=== PATIENT | male | born 1995 | race Caucasian/White ===

== ENCOUNTER 2017-08-26 11:42 | Emergency (ER) | payer BC ==
--- NOTE | 2017-08-26 12:33 | EDM.PDOC ---
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 The part was only partially supported, producing pain in the R shoulder girdle area. The R forearm feels fine. Since the incident, he is experiencing increasing muscular spasms of the upper back, migrating accross the back and chest. Breathing feels tight at times, and his MDI seems ineffective. He has taken no analgesics. - Related Data Home Meds: Home Meds Cyclobenzaprine [Flexeril] 10 mg PO TID #30 tab 08/26/17 [Rx] Past Medical History Respiratory History: Reports: Asthma ED ROS GENERAL - Review of Systems Review Of Systems: ROS reveals no pertinent complaints other than HPI. ED EXAM, UPPER BACK/NECK PAIN - Physical Exam Exam: See Below Exam Limited By: No Limitations General Appearance: Alert, WD/WN, Mild Distress Head Exam: Normocephalic Neck Exam: Non-Tender, Full Range of Motion, Normal Alignment, Normal Inspection Cardiovascular/Respiratory: Regular Rate, Rhythm, No M/R/G, Normal Peripheral Pulses, Normal Breath Sounds, No Respiratory Distress, Other (tenderness of anterior and posterior muscles R>L, aggravated with deep breathing and movement of UEs) Back Exam: Normal Inspection, Full Range of Motion, Muscle Spasm, Paraspinal Tenderness Extremities: Normal Inspection, Normal Range of Motion, Other (pain and stiffness with movement of shoulders R>L) Neurologic: fire alarm technician II-XII nml As Tested, No Motor/Sensory Deficits, Normal Mood/ Affect, Oriented x 3 Psychiatric: Normal Affect, Normal Mood Skin Exam: Normal Color, Warm/Dry Lymphatic: No Adenopathy Course - Vital Signs Text/Narrative:: Wiliam remained stable at [facility] ED. There is obvious muscle spasms with movements and deep breathing. Departure - Departure Time of Disposition: 12:25 Disposition: Home, Self-Care 01 Condition: Fair Clinical Impression: Muscle strain, multiple sites - Discharge Information Prescriptions: Cyclobenzaprine [Flexeril] 10 mg PO TID #30 tab Referrals: Chandni Billy PA-C [Primary Care Provider] - Forms: ED Department Discharge - Problem List & Annotations (1) Muscle strain, multiple sites SNOMED Code(s): 81868534 Code(s): T07.XXXA - UNSPECIFIED MULTIPLE INJURIES, INITIAL ENCOUNTER Status : Acute Current Visit: Yes Annotation/Comment:: I dispensed Flexeril 10 mg tabs taken 1/2 to 1 tab tid for muscle spasms, suggested NSAIDs for pain, gentle ROM and stretches. - Problem List Review Problem List Initiated/Reviewed/Updated: Yes - Assessment/Plan Plan: Follow up with PCP if needed.
== END 2017-08-26 12:32 | disposition home or self-care (01) ==
LOC: FB.ED 11:42
DX: S46.912A Strain of unspecified muscle, fascia and tendon at shoulder and upper arm level, left arm, initial encounter (principal); S46.911A Strain of unspecified muscle, fascia and tendon at shoulder and upper arm level, right arm, initial encounter; J45.909 Unspecified asthma, uncomplicated; X50.9XXA Other and unspecified overexertion or strenuous movements or postures, initial encounter
CPT/HCPCS: 99284

== ENCOUNTER 2017-09-27 02:15 | Emergency (ER) | payer BC ==
[2017-09-27] MEDS ORDERED: Ketorolac 60 MG/2 ML SDV IM ONE (02:54)
[2017-09-27] MEDS ORDERED: hydrOXYzine HCl 50 MG/ML SDV IM ONE (02:54)
[2017-09-27] MEDS ORDERED: Ondansetron 4 MG Tab.DIS PO ONE (03:01)
--- NOTE | 2017-09-27 03:59 | ER ---
DATE SEEN: 09/27/2017 CHIEF COMPLAINT: Vomiting. HISTORY OF PRESENT ILLNESS: This is a 21-year-old male who has had vomiting since about 2200 hours. He has had several episodes and the first one or two had some blood streaks in it. He does agree that he has been under some stress. He further complains of nonspecific headaches that he believes are related to stress. He does not have any fever, shortness of breath or melena stools. He does not have any dizziness. SOCIAL HISTORY: He does drink binges of alcohol vodka. ALLERGIES: He has no known allergies. PAST MEDICAL HISTORY: Anxiety. PHYSICAL EXAMINATION: GENERAL: He is not in distress. VITAL SIGNS: His blood pressure is 150/98, temperature 98.2. HEAD: Normocephalic. EYES: Normal. Pupils equal. CHEST: Clear. ABDOMEN: Soft, benign. Mild tenderness to the epigastrium. Bowel sounds present. IMPRESSION: 1. Vomiting. 2. Tension headaches. 3. Alcohol abuse. PLAN: 1. Vistaril and Toradol IM. 2. I advised him to use Zofran 4 mg every 6 hours p.r.n. for vomiting. I recommended that he quit alcohol and also stop using NSAIDs. He should see his physician in a week when he gets back to [place] where he is from. Return to the ED in the next couple days or any time with any worsening symptoms. TIME SEEN: 0245 hours. /[id number] CAROL/RIAN
== END 2017-09-27 03:15 | disposition home or self-care (01) ==
LOC: FB.ED 02:15
DX: R11.10 Vomiting, unspecified (principal); G44.209 Tension-type headache, unspecified, not intractable; F10.10 Alcohol abuse, uncomplicated
CPT/HCPCS: 96372; 99283; A9270; J1885; J3410